=== PATIENT | male | born 1995 | race Caucasian/White ===

== ENCOUNTER 2024-03-22 14:17 | Emergency (ER) | payer BC, OTHER ==
[~2024-03-22] VITALS: Ht 182.9 cm; Wt 108.9 kg
[~2024-03-22 14:17] MED LIST: MONODOX PO
[2024-03-22 14:24] VITALS: BP_SYST 134; PULSE 85; RESP 18; TEMP 98.3; O2SAT 98
[2024-03-22] MEDS ORDERED: HYDR-3927 PO (14:39)
[2024-03-22] MEDS ORDERED: IBUP-1971 PO (14:39)
[2024-03-22 15:18] VITALS: BP_SYST 134; PULSE 85; RESP 18; TEMP 98.3; O2SAT 98
== END 2024-03-22 15:19 | disposition home or self-care (01) ==
LOC: SED 14:17
DX: G89.29 Other chronic pain (principal); M54.50 Low back pain, unspecified; Z79.899 Other long term (current) drug therapy
CPT/HCPCS: 99283